=== PATIENT | female | born 1940 | race Caucasian/White ===

== ENCOUNTER 2019-09-19 12:30 | Outpatient (CLI) | payer OTHER, SELFPAY ==
[2019-09-19 13:27] LABS: Add Urine Microscopic? YES; Appearance Urine Clear (Clear); Bacteria Urine 2+ /hpf; Bilirubin Urine Negative (Negative); Blood Urine Negative (Negative); Color Urine Yellow (Yellow); Glucose Urine UA 3+ mg/dL (Negative); Ketones Urine Trace mg/dL (Negative); Leukocyte Esterase Ur Trace LEU/UL (NEGATIVE); Mucus Urine Rare /lpf; Nitrate Urine Positive (Negative); Protein Urine 2+ mg/dL (Negative); RBC Urine 0-2 /hpf (0-2); Specific Grav Ur 1.027 (1.001-1.035); Squamous Epithelial Cell Urine Many /hpf (Few); Urobilinogen Urine Negative mg/dL (<2.0); WBC Urine 31-50 /hpf (0-3)
[2019-09-19 13:29] LABS: Hemoglobin A1C 10.2 % (<5.7)
[2019-09-19 13:35] LABS: Alanine Aminotransferase 24 U/L (4-35); Albumin Level 3.9 g/dL (3.5-5.1); Alkaline Phosphatase 81 U/L (38-126); Aspartate Amino Transferase 27 U/L (14-36); Bilirubin,Total 0.6 mg/dL (0.2-1.3); Blood Urea Nitrogen 14 mg/dL (7-17); Calcium 9.5 mg/dL (8.4-10.2); Carbon Dioxide 29 mmol/L (22-30); Chloride 98 mmol/L (98-107); Cholesterol 190 mg/dL (0-200); Estimated Glomerular Filt Rate > 60; Glucose 318 mg/dL (65-105); HDL Direct 35 mg/dL; Potassium 4.1 mmol/L (3.4-5.0); Sodium 139 mmol/L (137-145); Triglycerides 198 mg/dL (<150)
[2019-09-19 13:46] LABS: LDL Cholesterol Direct 122 mg/dL
[2019-09-19 13:47] LABS: Creatinine Urine 132.2 mg/dL
[2019-09-19 14:01] LABS: Vitamin D 25 Hydroxy 14.4 ng/mL
[2019-09-19 14:09] LABS: MALB Creatinine Ratio 220.6 mg/g (0-30); Microalbumin Urine Random 291.6 mg/L (0-16.7)
== END 2019-09-19 12:31 | disposition home or self-care (01) ==
PROVIDERS: PCP Emergency Medicine; Visit Provider Emergency Medicine
DX: E78.2 Mixed hyperlipidemia (principal); R39.9 Unspecified symptoms and signs involving the genitourinary system; E11.9 Type 2 diabetes mellitus without complications; E55.9 Vitamin D deficiency, unspecified
CPT/HCPCS: 36415; 80053; 80061; 81001; 82043; 82306; 83036; 87077; 87086; 87088; 87186

== ENCOUNTER 2020-02-10 13:03 | Outpatient (CLI) | payer OTHER, SELFPAY ==
[2020-02-10 14:03] LABS: Hemoglobin A1C 9.6 % (<5.7)
== END 2020-02-10 13:04 | disposition home or self-care (01) ==
PROVIDERS: PCP Emergency Medicine; Visit Provider Emergency Medicine
DX: E11.9 Type 2 diabetes mellitus without complications (principal)
CPT/HCPCS: 36415; 83036

== ENCOUNTER 2020-04-30 19:48 | Emergency (ER) | payer OTHER, SELFPAY ==
--- NOTE | ~2020-04-30 | XR_ITS ---
EXAMINATION: XR foot LT min 3V DATE: 04/30/2020 20:27 INDICATION: Heel pain with pressure ulcer TECHNIQUE: Dorsoplantar, two oblique and lateral views of the left foot were obtained. COMPARISON: None. FINDINGS: Alignment is normal. No fracture. Minimal scattered osteoarthritis at multiple joints in the mid and forefoot. Achilles and plantar calcaneal spurs. No cortical erosions to suggest osteomyelitis. Soft t issues are unremarkable. IMPRESSION: 1. Degenerative skeletal changes as detailed above. No findings to suggest osteomyelitis or other acu te osseous abnormality. Reviewed, dictated and finalized at location [facility]. IMPRESSION: 1. Degenerative skeletal changes as detailed above. No findings to suggest oste omyelitis or other acute osseous abnormality.
[2020-04-30 19:52] VITALS: BP 171/82; PULSE 97; RESP 15; TEMP 36.7; O2SAT 96
--- NOTE | 2020-04-30 20:02 | ED.EXTPRO ---
HPI - Extremity Problem General Chief complaint: Extremity Problem,Nontraumatic Stated complaint: weakness and foot ulcer Time Seen by Provider: 04/30/20 19:51 Source: family Mode of arrival: wheelchair Limitations: dementia History of Present Illness HPI Narrative: This patient is a 79 year old female who presents for evaluation of a left heel ulcer. Her family is at bedside providing history. They report patient suffered a stroke and she was admitted to [facility] for 1 week. After she was discharged from [facility] , she was sent to a rehabilitation center. She was just discharged today from rehab, and her family member noticed patient had a wound on her left heel. She does not know how long it has been present. Patient does complain of pain but no other complaints. Related Data Home Medications Medication Instructions Recorded Confirmed aspirin 81 mg tablet,delayed 81 mg PO DAILY 09/22/19 release cholecalciferol (vitamin D3) 50 2,000 unit PO DAILY cap 09/22/19 mcg (2,000 unit) capsule donepezil 10 mg tablet 10 mg PO .COMPLEX 09/22/19 tramadol 50 mg tablet 50 mg PO Q6H PRN 09/22/19 Allergies Allergy/AdvReac Type Severity Reaction Status Date / Time Sulfa (Sulfonamide Allergy Unknown Verified 03/20/13 09:20 Antibiotics) Review of Systems Review of Systems: All systems reviewed & are unremarkable except as noted in HPI and below Constitutional: Constitutional: Denies chills and Denies fever(s) Cardiovascular: Cardiovascular: Denies chest pain Respiratory: Respiratory: Denies cough and Denies dyspnea Gastrointestinal: Gastrointestinal: Denies nausea Musculoskeletal: Musculoskeletal: Reports arthralgias Integumentary/Breasts: Skin/Breast: Reports skin ulcer PMF Past Medical History Medical History (Updated 05/01/20 @ 00:00 by Background Daemon) CVA (cerebral vascular accident) Diabetes mellitus HTN (hypertension) Social History Social History Smoking status: Never smoker Alcohol intake: never Exam Const: General: no acute distress and alert Orientation/consciousness: patient oriented x3 HENMT: Head: normocephalic Face and sinus: face symmetric Eyes: EOM: EOMs intact bilaterally Chest: Chest palpation & inspection: normal inspection of the chest Resp: Effort & Inspection: normal respiratory effort and no retractions Auscultation: clear to auscultation bilaterally Cardio: Rate: regular rate Rhythm: regular rhythm GI: GI Palp: Yes Soft to palpation, No Tenderness to palpation present (GI), No Guarding due to palpation present (GI) and No Rigid due to palpation Neuro: General: patient oriented x3 and moves all extremities Extrem: Other: left heel with 3 x 4 cm pressure ulcer with black eschar, no drainage, no erythema, there is mild surround tenderness. I am able to palpated DP pulse and doppler a left PT pulse Psych: Mental Status: mental status grossly normal Affect: normal affect Course Reevaluation(s) Reevaluation #1: I have discussed with patient's family member plan to discharge with silver gel dressing daily . she will follow up with general surgeon as outpatient. Date: 04/30/20 Time: 22:27 Consultations Consultation #1: I have discussed case with Dr. Simon who is brickmason contractor for Dr. Winkler. Discussed patient in for left heel pressure ulcer and she will need follow up for outpatient treatment. Date: 04/30/20 Time: 21:33 Consultation #2: I Discussed case with Dr. Young who states patient place patient on silver gel dressing once a day. He will follow up as outpatient. Vital Signs Vital signs: Vital Signs Temperature 98.1 F 04/30/20 19:52 Pulse Rate 97 04/30/20 19:52 Respiratory Rate 15 04/30/20 19:52 Blood Pressure 171/82 H 04/30/20 19:52 Pulse Oximetry 96 04/30/20 19:52 Temperature 98.9 F 04/30/20 22:17 Pulse Rate 79 04/30/20 22:17 Respiratory Rate 16 04/30/20 22:1
--- NOTE | 2020-04-30 20:10 | PC.NURSE ---
Patient back and bottom checked for other pressure ulcers. None were noted. There was, however, some redness noted to the left lateral buttock but no further breakdown was noted. Patient was placed in gown and both heels were elevated off of the bed for comfort.
[2020-04-30 20:32] LABS: Basophils Absolute Auto 0.1 K/mm3 (0.0-0.1); Basophils Percent Auto 0.7 % (0.2-1.2); Eosinophils Absolute Auto 0.3 K/mm3 (0-0.3); Eosinophils Percent Auto 3.1 % (0-4.4); Hematocrit 39.9 % (37.0-47.0); Hemoglobin 12.9 g/dL (12.0-15.0); Immature Granulocyte Absolute 0.04 K/mm3 (0.00-0.031); Immature Granulocyte Percent A 0.5 % (0-0.5); Lymphocytes Absolute Auto 3.34 K/mm3 (0.9-3.2); Lymphocytes Percent Auto 40.2 % (18.3-44.2); Mean Corpuscular HGB Conc 32.3 g/dl (32-36); Mean Corpuscular Hemoglobin 30.7 pg (26-34); Monocytes Absolute Auto 0.6 K/mm3 (0.1-0.6); Monocytes Percent Auto 7.2 % (2.6-8.5); Neutrophils Percent Auto 48.3 % (45.5-73.1); Platelet Count Result 375 k/mm3 (150-375); White Blood Count 8.3 K/mm3 (4.5-10.0)
[2020-04-30 20:47] LABS: Alanine Aminotransferase 24 U/L (4-35); Albumin Level 3.7 g/dL (3.5-5.1); Alkaline Phosphatase 89 U/L (38-126); Anion Gap 6 mmol/L (8-16); Aspartate Amino Transferase 34 U/L (14-36); Bilirubin,Total 0.6 mg/dL (0.2-1.3); Blood Urea Nitrogen 17 mg/dL (7-17); CRP 0.8 mg/dL (<1.0); Calcium 9.8 mg/dL (8.4-10.2); Carbon Dioxide 30 mmol/L (22-30); Chloride 106 mmol/L (98-107); Estimated CRCL calculation 51 ml/min; Estimated Glomerular Filt Rate > 60; Glucose 89 mg/dL (65-105); Potassium 4.1 mmol/L (3.4-5.0); Sodium 142 mmol/L (137-145)
[2020-04-30 22:17] VITALS: BP 132/62; PULSE 79; RESP 16; TEMP 37.2; O2SAT 98
[2020-04-30] MEDS: SILVERGEL (ELTA) 45 ML 1 APPLIC TOPICAL (22:30)
== END 2020-04-30 23:04 | disposition home or self-care (01) ==
PROVIDERS: Emergency Provider General Practice; PCP Emergency Medicine
DX: L89.629 Pressure ulcer of left heel, unspecified stage (principal); E11.9 Type 2 diabetes mellitus without complications; I10 Essential (primary) hypertension; Z86.73 Personal history of transient ischemic attack (TIA), and cerebral infarction without residual deficits
CPT/HCPCS: 36415; 73630; 80053; 85025; 86140; 99283

== ENCOUNTER 2020-06-01 14:35 | Outpatient (CLI) | payer OTHER, SELFPAY ==
--- NOTE | ~2020-06-01 | US_ITS ---
EXAMINATION: US art doppler w press LE EXAM DATE: 06/01/2020 15:32 INDICATION: I73.9 - Peripheral vascular disease, unspecified . TECHNIQUE: Segmental pressures and plethysmographic and Doppler waveforms of the brachial and lower e xtremity arteries were obtained. There is no prior study for comparison. FINDINGS: Right and left brachial artery pressures of 147 mm Hg and 157 mm Hg, respectively, are concordant (no rmal difference <= 30 mmHg). RIGHT LEG: The ankle-brachial index (ANSLEY) is 0.87 (normal >= 0.9-1). The great toe-brachial index (TBI) is 0.80 (normal >= 0.65). The lower extremity ratios, segmental pressure gradients as follows; Dorsalis pedis: 0.87 (137 mmHg). Posterior tibial: 0.83 (131 mmHg). (Normal gradients <= 20-30 mmHg between adjacent levels on the same leg or the same levels on the two legs). Arterial waveforms are biphasic proximally, monophasic belo w. LEFT LEG: The ankle-brachial index (ANSLEY) is 1.03 (normal >= 0.9-1). The great toe-brachial index (TBI) is 0.93 (normal >= 0.65). The lower extremity ratios, segmental pressure gradients as follows; Dorsalis pedis: 1.03 (162 mmHg). Posterior tibial: 1.02 (160 mmHg). (Normal gradients <= 20-30 mmHg between adjacent levels on the same leg or the same levels on the two legs). Arterial waveforms are biphasic proximally, monophasic belo w. IMPRESSION: 1. Right ankle-brachial index 0.87, minimally decreased. 2. Left ankle-brachial index 1.03, normal. Reviewed, dictated and finalized at location B. OR DRAFTER
== END 2020-06-01 14:36 | disposition home or self-care (01) ==
PROVIDERS: PCP Emergency Medicine; Visit Provider Emergency Medicine
DX: I73.9 Peripheral vascular disease, unspecified (principal)
CPT/HCPCS: 93923

== ENCOUNTER 2020-06-14 07:46 | Outpatient (RCR) | payer OTHER, SELFPAY ==
[2020-05-10 12:19] VITALS: BMI 25.8
--- NOTE | 2020-05-10 14:33 | P.PNWOUND_ITS ---
Wound Care Note Date/Time: 05/10/20 14:33 Patient is a 79-year-old woman who has a history of insulin-dependent diabetes, dementia and a fairly recent stroke. She was admitted to [facility] and then sent to longterm. Around April 29, she was able to be discharged from longterm. Her daughter Amberly has been taking care of her. On April 30, Amberly noticed a left heel ulcer. She took her mom to the emergency room at [place]. Plain films were negative there for osteomyelitis. She had a dry eschar on a heel ulcer. She was started on daily silver gel dressing changes. She is seen now for the initial visit in the wound clinic. She voices no complaints. How she got the heel ulcer is unknown. It appears to be a straightforward pressure ulcer probably from lying supine with pressure on her left heel. Assessment and Plan Assessment and plan (1) Pressure ulcer of left foot, unstageable: Code(s): L89.890 - Pressure ulcer of other site, unstageable Status: Acute Assessment and Plan: no signs of infection. We will start the patient on silver gel daily and order Mepilex foam bandage to be applied over the silver gel. The foot will then be wrapped with either Kerlix or Nicolas wrap. Dressing to be changed on a daily basis. Also we will order or waffle boots to avoid pressure phenomenon on the heel particularly when the patient is in bed or in her wheelchair. Discussed this with her daughter, Amberly. Patient has home health and they will keep an eye on this as well. Will order the above and see her again in 3-4 weeks in the wound clinic. (2) Diabetes mellitus: Qualifiers: Diabetes mellitus type: type 2 Diabetes mellitus skilled nursing insulin use: with skilled nursing use Diabetes mellitus complication status: without complication Qualified Code(s): E11.9 - Type 2 diabetes mellitus without complications; Z79.4 - long-term (current) use of insulin Code(s): E11.9 - Type 2 diabetes mellitus without complications Status: Acute (3) Dementia: Qualifiers: Dementia type: Alzheimer's disease Alzheimer's disease onset: unspecified onset Dementia behavioral disturbance: without behavioral disturbance Qualified Code(s): G30.9 - Alzheimer's disease, unspecified; F02.80 - Dementia in other diseases classified elsewhere without behavioral disturbance Code(s): F03.90 - Unspecified dementia without behavioral disturbance Status: Acute (4) Status post CVA: Code(s): Z86.73 - Personal history of transient ischemic attack (TIA), and cerebral infarction without residual deficits Status: Acute Review of Systems Review of Systems: All systems reviewed & are unremarkable except as noted in HPI and below ( All review comes from daughter and review of her records.) ROS unobtainable: Yes unobtainable due to mental status ( Dementia, all other history obtained from her daughter.) Constitutional: Constitutional: Denies chills and Denies fever(s) Exam Const: General: comfortable, no acute distress, well developed, alert and awake Nutritional Appearance: average body habitus Orientation/consciousness: confusion ( Essentially nonverbal. Does respond to discomfort) Limitations: altered mental status and physical limitations Extrem: Left lower extremity: foot ( dry eschar left heel without surrounding erythema, no drainage) Details: other ( no sign of cellulitis or abscess. Tender at eschar but no tenderness elsewhere on the left foot.)
--- NOTE | 2020-06-07 12:31 | PCWOUND ---
WOCN NOTE Patient did not show up for appointment, placed call to daughter to reschedule.
== END 2020-08-08 23:59 | disposition home or self-care (01) ==
LOC: ANHWOC 07:46
PROVIDERS: PCP Emergency Medicine; Visit Provider Surgery
DX: E11.621 Type 2 diabetes mellitus with foot ulcer (principal); L97.409 Non-pressure chronic ulcer of unspecified heel and midfoot with unspecified severity
CPT/HCPCS: 99212; 99213; G0463

== ENCOUNTER 2020-11-12 16:18 | Outpatient (CLI) | payer OTHER, SELFPAY ==
--- NOTE | ~2020-11-12 | CT_ITS ---
EXAMINATION: CT diagnostic chest wo con DATE: 11/12/2020 17:03 INDICATION: Solitary pulmonary nodule TECHNIQUE: Computed tomography (CT) of the chest was performed without intravenous contrast. Automate d exposure control and iterative reconstruction technique were employed. Exam dose: 56.14 mGy-cm tot al exam DLP. COMPARISON: 11/09/2016 portable AP chest 12/2011 two-view chest FINDINGS: There are multiple bilateral pulmonary nodular densities. There are multiple nodular densit ies measuring up to 9 mm in the superior segment of the right lower lobe (series 4 images 43-48). The re are 2 approximately 5.5 to 6 mm nodular densities or focal nodular infiltrate, one in the lower as pect of the right upper lobe (series 4 image 64) and the other in the middle lobe (series 4 image 71) . 5.8 mm nodular density, left upper lobe (image 48) 7.5 mm left lower lobe nodule (image 66) Minimal discoid atelectasis or scarring in the lower lobes and middle lobe. Heart size is within normal range. No pericardial effusion. There is prominent coronary artery calcif ication. Calcification region of the aortic valve. Prominent thoracic aortic and great vessel calcifications. No thoracic aortic aneurysm. No hilar or mediastinal mass lesion or lymphadenopathy is evident. Diffuse idiopathic skeletal hyperostosis of the thoracic and upper lumbar spine. Prominent degenerati ve disc disease in the lower cervical spine. No suspicious osteolytic or osteoblastic lesions are noted. Included portions of the adrenal glands are unremarkable. IMPRESSION: Multiple bilateral pulmonary nodular densities; differential diagnosis includes metastat ic disease as well as infectious process Reviewed, dictated and finalized at [facility]. Reviewed, dictated and finalized at location A. IMPRESSION: Multiple bilateral pulmonary nodular densities; differential diagn osis includes metastatic disease as well as infectious process
== END 2020-11-12 16:19 | disposition home or self-care (01) ==
LOC: ANHIMG 16:20
PROVIDERS: PCP Emergency Medicine; Visit Provider Emergency Medicine
DX: R91.1 Solitary pulmonary nodule (principal); R91.8 Other nonspecific abnormal finding of lung field
CPT/HCPCS: 71250

== ENCOUNTER 2020-11-22 07:29 | Outpatient (RCR) | payer OTHER, SELFPAY ==
--- NOTE | 2020-10-19 13:41 | WPDWOUNDNOTE ---
Wound Care Note Date/Time: 10/19/20 13:41 History: Elderly lady with history of diabetes dementia and previous stroke. Seen in follow-up for left heel ulcer. Wound history: Left heel ulcer previously was 100% dry eschar. She had been using Betadine dressings. Eschar has now started to soften and slough and some areas. Wound approximation: No Wound width: 1.9 cm, decreased from 3.4 Wound length: 2.6 cm, decreased from 3.5 cm Wound depth: now that has started to slough we do have wound depth of 5 mm. Drainage: [place] serosanguineous Surrounding tissue appearance: dry Percentage granulation tissue: 95 Treatment/Procedures: loose slough and callus cleaned from wound bed. Dressings: Change from Betadine dressings to Silver Gel, Mepilex foam and gauze daily. Assessment and Plan Assessment and plan (1) Decubitus ulcer of left heel, stage 2: Code(s): L89.622 - Pressure ulcer of left heel, stage 2 Status: Chronic Assessment and Plan: eschar has become loose slough and was removed today. Silver gel with Mepilex foam dressings daily cover with gauze. Follow up with me in the wound clinic in 3 weeks. (2) Status post CVA: Code(s): Z86.73 - Personal history of transient ischemic attack (TIA), and cerebral infarction without residual deficits Status: Chronic (3) Dementia: Qualifiers: Dementia type: Alzheimer's disease Alzheimer's disease onset: unspecified onset Dementia behavioral disturbance: without behavioral disturbance Qualified Code(s): G30.9 - Alzheimer's disease, unspecified; F02.80 - Dementia in other diseases classified elsewhere without behavioral disturbance Code(s): F03.90 - Unspecified dementia without behavioral disturbance Status: Chronic (4) Diabetes mellitus: Qualifiers: Diabetes mellitus type: type 2 Diabetes mellitus shelter insulin use: with shelter use Diabetes mellitus complication status: without complication Qualified Code(s): E11.9 - Type 2 diabetes mellitus without complications; Z79.4 - middle or intermediate school principal (current) use of insulin Code(s): E11.9 - Type 2 diabetes mellitus without complications Status: Chronic Review of Systems Review of Systems: All systems reviewed & are unremarkable except as noted in HPI and below Constitutional: Constitutional: Denies chills and Denies fever(s) Psychiatric: Psychiatric: Reports confusion and Reports memory loss Exam Extrem: Left lower extremity: foot ( Left heel ulcer has loose slough removed, pink and granulating. Better)
--- NOTE | 2020-11-08 07:53 | WPDWOUNDNOTE ---
Wound Care Note Date/Time: 11/08/20 07:53 History: Elderly lady with history of diabetes, dementia, and previous stroke. Seen in the wound clinic today for follow-up of a chronic left heel ulcer. Wound history: Left heel ulcer previously was dry eschar. Patient was switched from Betadine dressings to Silver Gel with Mepilex foam and gauze daily at her last visit on 10/19/2020. Assessment and Plan Assessment and plan (1) Decubitus ulcer of left heel, stage 2: Code(s): L89.622 - Pressure ulcer of left heel, stage 2 Status: Chronic Assessment and Plan: eschar has become loose slough and was removed today. Silver gel with Mepilex foam dressings daily cover with gauze. Follow up with me in the wound clinic in 3 weeks. (2) Status post CVA: Code(s): Z86.73 - Personal history of transient ischemic attack (TIA), and cerebral infarction without residual deficits Status: Chronic (3) Dementia: Qualifiers: Dementia type: Alzheimer's disease Alzheimer's disease onset: unspecified onset Dementia behavioral disturbance: without behavioral disturbance Qualified Code(s): G30.9 - Alzheimer's disease, unspecified; F02.80 - Dementia in other diseases classified elsewhere without behavioral disturbance Code(s): F03.90 - Unspecified dementia without behavioral disturbance Status: Chronic (4) Diabetes mellitus: Qualifiers: Diabetes mellitus type: type 2 Diabetes mellitus nursing home insulin use: with grade school teacher use Diabetes mellitus complication status: without complication Qualified Code(s): E11.9 - Type 2 diabetes mellitus without complications; Z79.4 - clinical allergist (current) use of insulin Code(s): E11.9 - Type 2 diabetes mellitus without complications Status: Chronic Review of Systems Review of Systems: All systems reviewed & are unremarkable except as noted in HPI and below Constitutional: Constitutional: Denies chills and Denies fever(s) Neurologic: Reports confusion and Reports memory loss Psychiatric: Psychiatric: Reports confusion and Reports memory loss Exam Const: General: confusion Orientation/consciousness: confusion Neuro: General: confusion Extrem: Left lower extremity: foot ( Left heel ulcer has loose slough removed, pink and granulating. Better)
--- NOTE | 2020-11-08 09:22 | PCWOUND ---
WOCN NOTE patient's daughter called to cancel appointment due to her having a health issue. Daughter is patient's primary caregiver. Rescheduled for 11/22/20 at 10:00am
--- NOTE | 2020-11-29 15:37 | WPDWOUNDNOTE ---
Wound Care Note Date/Time: 11/22/20 09:30 History: 80-year-old woman with history of insulin-dependent diabetes, dementia and a stroke. She was initially seen last April for a pressure ulcer of the left heel. Wound history: In April, ulcer had a dry eschar. She was started on Betadine to the ulcer daily. It was recommended to keep the leg elevated. It was 100% dry eschar and 3.5 cm. Wound gradually lost the eschar and started to heal. A lot of loose slough and callus was noted. Wound care was changed to Silver Gel with Mepilex foam and gauze dressing daily. Wound approximation: No Wound width: 0.5 cm Wound length: 1.5 cm Wound depth: 0.7 cm Drainage: pink serosanguineous Surrounding tissue appearance: dry, healthy appearance, some callus Tunneling: none Percentage granulation tissue: 100% Treatment/Procedures: loose slough and callus removed from wound bed. Dressings: Continue silver gel, Mepilex foam and gauze dressing daily. Wound is getting smaller and healing nicely. Assessment and Plan Assessment and plan (1) Decubitus ulcer of left heel, stage 2: Code(s): L89.622 - Pressure ulcer of left heel, stage 2 Status: Chronic Assessment and Plan: Continued healing with current dressing changes of silver gel, Mepilex foam and gauze dressing daily. Recheck again in wound clinic in 3 weeks. Review of Systems Review of Systems: All systems reviewed & are unremarkable except as noted in HPI and below Constitutional: Constitutional: Denies chills, Denies fever(s), Denies headache(s), Denies poor appetite and Reports weakness Exam Extrem: Left lower extremity: foot ( Left heel ulcer healing, smaller and granulating. Looks good.)
== END 2020-12-05 23:59 | disposition home or self-care (01) ==
LOC: ANHWOC 07:29
PROVIDERS: PCP Emergency Medicine; Visit Provider Surgery
DX: E11.621 Type 2 diabetes mellitus with foot ulcer (principal); L97.429 Non-pressure chronic ulcer of left heel and midfoot with unspecified severity
CPT/HCPCS: 99212; 99213; G0463